=== PATIENT | female | born 1945 | race Caucasian/White ===

== ENCOUNTER 2020-09-02 11:43 | Emergency (ER) | payer OTHER ==
[~2020-09-02] VITALS: Ht 160 cm; Wt 70.8 kg
[~2020-09-02 11:43] MED LIST: ACETAMINOPHEN-1 EAC1 PO; ADDERALL XR 3030 MG PO; AMARYL2 MG; AMARYL2 MG PO; AUGMENTIN 875875 MG PO; BUPROPION XL300 MG PO; CELEXA20 MG PO; ERYTHROMYCIN E3.5 G1 OPHTHALMIC; FENOFIBRATE160 MG PO; FLAGYL500 MG PO; GLUCOPHAGE XR500 MG PO; LISINOPRIL-HCT1 EAC1 PO; METFORMIN HCL500 MG PO; NORCO 5-325 TA1 EACH PO; PHENERGAN 25 MG25 M1 PO; PROMS25 WY RECTAL; ROBAXIN 750 MG750 M1 PO; TRAZODONE HCL50 MG PO; ZANTAC 150MG T150 MG PO
[2020-09-02] MEDS ORDERED: OMEPRAZOLE 20 M20 M1 PO (11:53)
[2020-09-02 13:33] VITALS: BP 166/67
--- NOTE | 2020-09-03 14:38 | EKG ---
[place] [address] ELECTROCARDIOGRAM REPORT Name: CHAITANYA PLUMMER Room: [facility]#: [id number] Admission: 09/02/20 Attend Phys: Discharge: 09/02/20 Date of : 49 Date of Service: 09/02/20 1149 Report #: [id number] THIS REPORT FOR: //name// [facility] ED Test Date: 2020-09-02 Test Time: 11:49:40 Pat Name: CHAITANYA PLUMMER Department: Room: Gender: F Varnish Dipper: SELIN : 1945 Requested By: Jesse Pickett Order Number: [id number] Ida MD: Jose James Measurements Intervals Reading Rate: 84 P: 76 IA: 192 QRS: 32 QRSD: 82 T: 44 QT: 363 QTc: 430 Interpretive Statements Sinus rhythm Possible left atrial enlargement Anteroseptal infarct, age indeterminate, possible No previous ECG available for comparison Electronically Signed On 09-03-2020 14:38:02 [employer]END[employer] by Jose James [email or web address] <ELECTRONICALLY SIGNED> By: Jose James MD, [facility] 09/03/20 1438 1149 1149 Jose James MD, [facility] /EPI
== END 2020-09-02 14:34 | disposition home or self-care (01) ==
LOC: M.ERS 11:43
DX: S06.0X0A Concussion without loss of consciousness, initial encounter (principal); M54.2 Cervicalgia; I10 Essential (primary) hypertension; E11.9 Type 2 diabetes mellitus without complications; Z90.49 Acquired absence of other specified parts of digestive tract; Z85.89 Personal history of malignant neoplasm of other organs and systems; Z88.6 Allergy status to analgesic agent; W01.0XXA Fall on same level from slipping, tripping and stumbling without subsequent striking against object, initial encounter; Y93.89 Activity, other specified; Y92.89 Other specified places as the place of occurrence of the external cause; Y99.8 Other external cause status